=== PATIENT | male | born 1980 | race Two or more races ===

== ENCOUNTER 2017-08-15 10:48 | Emergency (ER) | payer SELFPAY ==
[~2017-08-15] VITALS: Ht 167.6 cm; Wt 72.6 kg
[2017-08-15 11:40] VITALS: BP 149/96
== END 2017-08-15 12:08 | disposition home or self-care (01) ==
LOC: ER 10:48
DX: G89.29 Other chronic pain (principal); M54.5 Low back pain; V43.62XA Car passenger injured in collision with other type car in traffic accident, initial encounter; Y93.89 Activity, other specified; Y92.89 Other specified places as the place of occurrence of the external cause; Y99.8 Other external cause status

== ENCOUNTER 2019-07-19 08:38 | Emergency (ER) | payer MEDICAID, OTHER ==
[~2019-07-19] VITALS: Ht 167.6 cm; Wt 79.4 kg
[2019-07-19 08:48] VITALS: BP 143/82
== END 2019-07-19 09:56 | disposition home or self-care (01) ==
LOC: ER 08:38
DX: M54.9 Dorsalgia, unspecified (principal); M54.2 Cervicalgia; G89.29 Other chronic pain; Z76.0 Encounter for issue of repeat prescription

== ENCOUNTER 2021-11-19 22:06 | Emergency (ER) | payer MEDICAID, OTHER ==
[~2021-11-19] VITALS: Ht 167.6 cm; Wt 72.6 kg
[2021-11-19 22:10] VITALS: BP 120/78
== END 2021-11-20 00:23 | disposition home or self-care (01) ==
LOC: ER 22:06
DX: K59.00 Constipation, unspecified (principal)
CPT/HCPCS: 74018